=== PATIENT | male | born 1975 | race Caucasian/White ===

== ENCOUNTER 2017-04-29 01:51 | Emergency (ER) | payer BC ==
[~2017-04-29] VITALS: Ht 175.3 cm; Wt 93.9 kg
[2017-04-29 01:55] VITALS: TEMP 36.4; Ht 175.3 cm; Wt 93.9 kg
[2017-04-29] MEDS ORDERED: LIDOCAINE 1% BUFFERED INJ 20 ML VIAL INFIL ONE (02:30)
[2017-04-29 04:39] VITALS: BP 122/74; PULSE 84; O2SAT 95
--- NOTE | 2017-04-29 06:24 | EMERGENCY ROOM VISIT NOTE ---
History First contact with patient: 02:19 Chief Complaint: LACERATION/CUT (SUT/DERMABOND) Stated Complaint: FALL - GASH BEHIND RIGHT EAR Nursing Triage Summary: pt states he had 2 bottles of wine and fell out of bed, lac to behind right ear History of Present Illness The patient is a 41 year old male who presents to the Emergency Room with complaints of head injury when he rolled out of bed hitting his ear on the end table sustaining a laceration. Patient states he has been drinking alcohol tonight celebrating [place]. He does not feel overly intoxicated. Patient denies loss of conscious, facial pain, dental pain, chest pain, dyspnea , loss of hearing, loss of vision, back pain, abdominal pain or any other medical complaints. Tetanus is current. Review of Systems See HPI for pertinent positives & negatives. A total of 10 systems reviewed and were otherwise negative. Past Medical/Surgical History None Social History Smoking Status: Never Smoker Smokeless Tobacco Use: Yes Alcohol Use: occasionally Drug Use: none Marital Status: Housing Status: lives with family Occupation Status: employed Current/Historical Medications No Active Prescriptions or Reported Meds Physical Exam Vital Signs Date Time Temp Pulse Resp B/P (MAP) Pulse Ox O2 Delivery O2 Flow Rate FiO2 04/29/17 04:39 84 16 122/74 95 04/29/17 03:27 78 18 124/76 98 Room Air 04/29/17 01:55 36.4 95 18 132/77 97 Room Air Physical Exam PHYSICAL EXAM: VITALS: Vitals are noted on the nurse's note and reviewed by myself. Vital signs stable. GENERAL: Pleasant male, in no acute distress, nondiaphoretic, well-developed well-nourished. SKIN: The skin was without obvious lacerations or abrasions. Capillary reflex less than 2 seconds. HEAD: Normocephalic atraumatic. EARS: External auditory canals clear, tympanic membranes pearly petty without erythema or effusion bilaterally. No hemotympanums. No whelan sign. No mastoid tenderness. Right posterior ear with extensive laceration that is gaping and appears clean that is 5 mm with minimal bleeding EYES: Pupils equal round and reactive to light and accommodation. Conjunctivae with injection, sclerae without icterus. Extraocular movements intact. NOSE: Patent, turbinates without inflammation or discharge. No sinus tenderness. No septal hematoma or bleeding. FACE: No facial bone tenderness. Full range of motion of the jaw without tenderness. MOUTH: Mucous membranes moist. Pharynx without erythema or exudate. Uvula midline. Airway patent. Tongue does not deviate. NECK: Supple without nuchal rigidity. Cervical spine is nontender. Full range of motion of the neck without tenderness. No JVD. HEART: Regular rate and rhythm LUNGS: Clear to auscultation bilaterally without wheezes, rales or rhonchi. No dullness to percussion. No retractions or accessory muscle use. ABDOMEN: Positive bowel sounds x 4. Normal tympanic percussion. Soft, nontender, without masses or organomegaly. No guarding or rebound tenderness. MUSCULOSKELETAL: No tenderness of the thoracic or lumbar spine. Full range of motion without tenderness to palpation in all extremities. Normal gait. NEURO: Patient was alert and oriented to person place and time. Normal sensation to light and sharp touch. Cerebellar function intact. No focal neurological deficits. Medical Decision & Procedures Procedure Location: ear Total length: 6cm Complexity: simple Verbal consent was obtained after the risks and benefits were explained, including but not limited to bleeding, scarring, infection, pain, and bone/joint /nerve damage. At this time, the risks of the procedure are less than the risks of NOT performing the procedure. A time out was taken and the correct patient and site identified. The skin was prepped with betadine. The target area was anesthetized with 5 ml of 1% lidocaine without epinephrine. Copious irrigation was performed using NSS. The skin was re-prepped with betadine and a sterile field set. The wound was explored for foreign bodies and none found. Examination revealed no injury to deep structures such as tendons, bone, or significant blood vessels. Debridement was not performed. The wound edges were approximated using 16, 6-0 simple interrupted nylon sutures. Hemostasis and excellent approximation was achieved. Antibacterial ointment and a sterile dressing applied. Detailed wound care instructions and signs and symptoms of infection reviewed with the pt. No complications and the patient tolerated the procedure well. ED Course Prior records/ancillary studies reviewed. Triage Nursing notes reviewed. Additional history obtained from family. The patient's history was concerning for traumatic head injury and ear laceration Differential diagnosis: Etiologies such as concussion, contusion, fracture, subdural hematoma, epidural hematoma, intraparenchymal hemorrhage, as well as other traumatic pathologies were entertained. Physical examination findings: As above. ER treatment provided: Laceration repaired as above On reassessment the patient felt better. Diagnostics interpreted by me: Imaging studies: Head and cervical CT negative for intracranial bleed or fracture per radiology It appears the patient has a head injury who is intoxicated with extensive ear laceration. Patient was intoxicated so imaging was ordered. No acute findings. Laceration was repaired as above. A compression gauze was placed over the laceration after it was bandaged to help prevent developing a cauliflower ear. He was advised to do this daily for the next few days and follow-up with plastic surgery. Patient was counseled on head injury signs and symptoms and on laceration care. Family verbalized understanding this. Tetanus is current. He was advised to follow-up family care plastics in a few days or here in the ER sooner for headache, fevers, confusion, worsening signs or symptoms or as needed. By the evaluation outlined above emergent etiologies such as fracture, subdural hematoma, epidural hematoma, intraparenchymal hemorrhage, as well as others were deemed relatively unlikely. The pt informed about the findings as listed above. All questions were answered and pleased with the treatment. Return instructions were outlined and the patient was discharged in stable condition. Case reviewed with my attending who also saw the laceration. The chart was completed utilizing [employer] Speech voice recognition software. Grammatical errors, random word insertions, pronoun errors, and incomplete sentences are an occassional consequence of this system due to software limitations, ambient noise, and hardware issues. Any formal questions or concerns about the content, text, or information contained within the body of this dictation should be directly addressed to the physician carpenter assistant for clarification. Referral: The patient was referred back to their primary care physician and plastic surgery for follow-up in 2 to 3 days for a recheck of the current condition. Medical Decision as above Head Trauma GCS Score: 15 Medication Reconcilliation Current Medication List: was personally reviewed by me Blood Pressure Screening Patient's blood pressure: Normal blood pressure Impression Primary Impression: Laceration of ear Additional Impression: Head injury Departure Information Dispostion Home / Self-Care Condition GOOD Prescriptions No Active Prescriptions or Reported Meds Referrals Yessi Ta MD Forms HOME CARE DOCUMENTATION FORM, Work Instructions, Return To Work: 2 days IMPORTANT VISIT INFORMATION Patient Instructions My [facility], ED Head Injury Closed, ED Laceration All Additional Instructions Head injury: Read head injury handout and return for any symptoms. Tylenol 1000 mg as needed for pain (Maximum 3000 mg Tylenol in 24 hr period). Avoid alcohol and contact sports/activities for one week and follow up with family doctor prior to returning to these activities if still symptomatic. Ice and elevate head. If your symptoms persist more than a week then follow up with the concussion clinic. Call [phone]. Return to ER sooner for headache, fevers, confusion, worsening signs or symptoms or as needed. Laceration: Do daily dressing changes with bacitracin and bandage. Wear compression gauze for the next 3-4 days to help prevent developing a cauliflower ear. Then apply bacitracin bandage for the week. Keep wound clean and dry. Do not allow any crusting or dried blood to accumulate on sutures. If this occurs, use a 1:1 solution of hydrogen peroxide/ water on a Q-tip to clean the wound. Use an antibiotic ointment for 3-4 days, then let wound dry. Suture removal in 8-10 days. Return sooner for any signs of infection (increasing redness, swelling, drainage). Ice and elevate for swelling and pain. Keep covered when in sun until sutures removed then SPF 50 or higher for one year. Vitamin E oil if desired two weeks after suture removal for reduction of scar. Follow-up with plastic surgery in 2-3 days. Call for an appointment. Return to ER sooner for headache, fevers, confusion, signs of infection, worsening signs or symptoms or as needed. Work Instructions Return To Work: 2 days Problem Qualifiers Primary Impression: Laceration of ear Encounter type: initial encounter Laterality: right Qualified Codes: S01.311A - Laceration without foreign body of right ear, initial encounter
--- NOTE | 2017-04-29 09:16 | DIAGNOSTIC IMAGING REPORT ---
CT SCAN OF THE CERVICAL SPINE CLINICAL HISTORY: Intoxication. Fall with head injury. COMPARISON STUDY: No priors. TECHNIQUE: CT scan of the cervical spine is performed from the skull base to the upper thoracic spine. Images are reviewed in the axial, sagittal, and coronal planes. IV contrast was not administered for this examination. A dose lowering technique was utilized adhering to the principles of ALARA. CT DOSE: 1129.71 mGy.cm FINDINGS: Skeletal structures: The skeletal structures are well mineralized. There is no evidence of fracture or subluxation involving the cervical spine. Vertebral body height and alignment are maintained. There is straightening of the cervical lordosis with reversal centered at C4-C5. The odontoid process and lateral masses are intact. The atlantoaxial articulation is preserved. The spinous processes appear intact. A portion of the right first rib appears to be absent. Intervertebral discs: The disc spaces are well maintained. Central canal: Widely patent. Soft tissues: The prevertebral and paraspinous soft tissues are within normal limits. Calvarium: The visualized calvarium at the skull base appears intact. Brain parenchyma: Partially visualized brain parenchyma the skull base is within normal limits. Sinuses and mastoids: The visualized paranasal sinuses are clear. The mastoid air cells are well pneumatized. Lung apices: Clear as visualized. IMPRESSION: There is no evidence of fracture or subluxation involving the cervical spine. Electronically signed by: Chester Licea M.D. 04/29/2017 9:15 AM Dictated Date/Time: 04/29/2017 9:13 AM
--- NOTE | 2017-04-29 09:38 | DIAGNOSTIC IMAGING REPORT ---
CT SCAN OF THE BRAIN WITHOUT IV CONTRAST CLINICAL HISTORY: Intoxication. Fall with head injury. COMPARISON STUDY: No priors. TECHNIQUE: Unenhanced axial CT scan of the brain is performed from the vertex to the skull base. A dose lowering technique was utilized adhering to the principles of ALARA. CT DOSE: Reported separately under the concurrently performed CT scan of the cervical spine. FINDINGS: Brain parenchyma: The brain parenchyma is normal in appearance. There is no hemorrhage, mass effect, or evidence of acute territorial ischemia by CT criteria. Mccauley-white matter is preserved. No extra-axial fluid collection is seen. Ventricles, sulci, cisterns: Normal in configuration. Intracranial vasculature: The visualized intracranial vasculature at the skull base is normal in appearance. Calvarium: There is no depressed calvarial fracture. Sinuses and mastoids: The visualized paranasal sinuses are clear. The mastoid air cells are well pneumatized. Orbits: The bony orbits are grossly intact. IMPRESSION: No acute intracranial abnormality. Electronically signed by: Chester Licea M.D. 04/29/2017 9:37 AM Dictated Date/Time: 04/29/2017 9:35 AM
== END 2017-04-29 04:39 | disposition home or self-care (01) ==
LOC: C.EDB 01:53 → C.EDC 04:39
DX: S01.311A Laceration without foreign body of right ear, initial encounter (principal); S09.90XA Unspecified injury of head, initial encounter; W22.8XXA Striking against or struck by other objects, initial encounter; Y93.89 Activity, other specified; Y99.8 Other external cause status; F17.290 Nicotine dependence, other tobacco product, uncomplicated